=== PATIENT | female | born 1990 | race African-American/Black ===

== ENCOUNTER 2018-08-05 09:52 | Observation (INO) | payer MEDICARE, OTHER ==
--- NOTE | 2018-08-05 10:26 | PDOC ---
History of Present Illness <Lacey,Yana - Last Filed: 08/05/18 15:49> - General History Source: Patient Exam Limitations: No Limitations - History of Present Illness Initial Comments: 08/05/18 10:44 27 year old female with no PMH presented to ED for nausea, vomiting, diarrhea since last night. She admitted to upper abdominal pain, and cramps in hands/feet , chills, sweats, body aches. She denied chest pain, shortness of breath, dysuria. Pt stated LMP finished 2 days ago. <FeliceTiffany - Last Filed: 08/05/18 16:59> - General Chief Complaint: Nausea/Vomiting Stated Complaint: NAUSEA Time Seen by Provider: 08/05/18 10:26 Past History <LaceyYana - Last Filed: 08/05/18 15:49> - Past Medical History COPD: No - Immunization History Immunization Up to Date: Yes - Suicide/Smoking/Psychosocial Hx Smoking History: Never smoked Number of Cigarettes Smoked Daily: 10 Information on smoking cessation initiated: No Hx Alcohol Use: No Drug/Substance Use Hx: Yes Substance Use Type: Marijuana <Taryn Viverosa - Last Filed: 08/05/18 16:59> - Past Medical History Allergies/Adverse Reactions: Allergies Allergy/AdvReac Type Severity Reaction Status Date / Time Penicillins Allergy Rash Verified 08/05/18 10:04 Home Medications: Ambulatory Orders Famotidine [Pepcid] 40 mg PO DAILY #14 tablet 07/24/16 Ondansetron HCl [Zofran] 4 mg PO QID PRN #12 tablet 07/24/16 Review of Systems - Review of Systems Able to Perform ROS?: Yes Comments:: 08/05/18 10:45 General: admitted to chills, night sweats, generalized weakness. HEENT: denied sore throat, rhinorrhea, ear pain. Heart: denied chest pain, palpitations, syncope, lower extremity swelling, diaphoresis. Respiratory: denied shortness of breath, cough, sputum production, hemoptysis. Abdomen: admitted to abdominal pain, nausea, vomiting, diarrhea. denied constipation, blood in stool. : denied dysuria, increased urinary frequency, hematuria, urinary incontinence , flank pain. Back: denied back pain. Musculoskeletal: admitted to hand/feet cramping. denied joint pain, muscle pain , joint swelling. Neurological: denied headache, dizziness, numbness, tingling, weakness. Skin: denied rash, laceration, abrasion. <Felice,Tiffany - Last Filed: 08/05/18 16:59> *Physical Exam - Vital Signs Last Vital Signs Temp Pulse Resp BP Pulse Ox 98.2 F 68 17 126/76 98 08/05/18 14:46 08/05/18 14:46 08/05/18 14:46 08/05/18 14:46 08/05/18 14:47 <DeepthiYana - Last Filed: 08/05/18 15:49> - Vital Signs Last Vital Signs Temp Pulse Resp BP Pulse Ox 97.7 F 70 20 125/74 100 08/05/18 10:04 08/05/18 10:04 08/05/18 10:04 08/05/18 10:04 08/05/18 10:04 - Physical Exam Comments: 08/05/18 10:47 Constitutional: Well-nourished, Well-developed, appearing stated age. HEENT: head is normocephalic, atraumatic. EOMI. PERRLA. no posterior pharyngeal erythema. no tonsillar swelling. no tonsillar exudates. Neck: supple. Full ROM. Heart: regular rhythm. no murmurs, rubs or gallops. Lungs: clear to auscultation bilaterally. no crackles, rhonchi or wheezing. no stridor. Abdomen: soft, nontender. normal bowel sounds. no rebound, guarding, masses. Extremities: Peripheral pulses intact. No lower extremity edema. Neurological: CN 2-12 grossly intact. Moves all four extremities. Psych: awake, alert, oriented x3. Follows commands. Answers questions appropriately. <FeliceTiffany - Last Filed: 08/05/18 16:59> ED Treatment Course - LABORATORY CBC & Chemistry Diagram: 08/05/18 10:31 08/05/18 10:50 - ADDITIONAL ORDERS Additional order review: Laboratory Results 08/05/18 08/05/18 08/05/18 13:16 10:50 10:50 PT with INR 13.70 H INR 1.16 H PTT (Actin FS) 29.4 Sodium 140 Potassium 3.5 Chloride 108 H Carbon Dioxide 21 Anion Gap 11 BUN 9 Creatinine 0.8 Creat Clearance w eGFR > 60 Random Glucose 96 Calcium 9.3 Phosphorus 2.3 L Magnesium 2.0 Total Bilirubin 0.4 AST 22 ALT 30 Alkaline Phosphatase 52 Total Protein 8.0 Albumin 4.3 Lipase 124 Urine Color Urine Appearance Urine pH Ur Specific [place] Urine Protein Urine Glucose (UA) Urine Ketones Urine Blood Urine Nitrite Urine Bilirubin Urine Urobilinogen Ur Leukocyte Esterase Urine WBC (Auto) Urine RBC (Auto) Ur Epithelial Cells Urine Mucus Urine HCG, Qual Stool Occult Blood Negative 08/05/18 10:31 PT with INR INR PTT (Actin FS) Sodium Potassium Chloride Carbon Dioxide Anion Gap BUN Creatinine Creat Clearance w eGFR Random Glucose Calcium Phosphorus Magnesium Total Bilirubin AST ALT Alkaline Phosphatase Total Protein Albumin Lipase Urine Color Ltyellow Urine Appearance Clear Urine pH 9.0 H D Ur Specific [place] 1.023 Urine Protein 1+ H Urine Glucose (UA) Negative Urine Ketones 2+ H Urine Blood Negative Urine Nitrite Negative Urine Bilirubin Negative Urine Urobilinogen Negative Ur Leukocyte Esterase Negative Urine WBC (Auto) <1 Urine RBC (Auto) 1 Ur Epithelial Cells Few Urine Mucus Rare Urine HCG, Qual Negative Stool Occult Blood 08/05/18 10:31 RBC 4.61 MCV 65.8 L MCHC 31.4 L RDW 22.9 H MPV 9.3 Neutrophils % 88.4 H Lymphocytes % 7.8 L D Monocytes % 3.5 L Eosinophils % 0.0 D Basophils % 0.3 - RADIOLOGY Radiograph Interpretation: Abdomen and pelvis CT (with contrast). There appears to be a concentric wall thickening along the right colon suggestive of acute colitis. A possible small bowel intussusception is seen within the right mid abdomen. There is mild dilatation of the more proximal small bowel. Mild to moderate fluid-filled gastric distention is noted. Correlate with follow-up CT> Possible 2 mm nonobstructing left renal calculus. Borderline splenic size. Mild L5-S1 spondylolytic spondylolisthesis. Reported By: Mateo Mujica MD 08/05/18 at 15:40. 08/05/18 15:47 - Medications Given in the ED: ED Medications Discontinued Medications Generic Name Dose Route Start Last Admin Trade Name Freq PRN Reason Stop Dose Admin Acetaminophen 1,000 mg 08/05/18 10:45 08/05/18 10:59 Tylenol - PO 08/05/18 10:46 Not Given ONCE ONE Acetaminophen 1,000 mg 08/05/18 10:52 08/05/18 10:57 Ofirmev Injection - IVPB 08/05/18 10:53 1,000 mg ONCE ONE Administration Sodium Chloride 1,000 mls @ 1,000 mls/hr 08/05/18 10:28 08/05/18 10:52 Normal Saline - IV 08/05/18 11:27 1,000 mls/hr ASDIR STA Administration Ondansetron HCl 4 mg 08/05/18 10:28 08/05/18 10:52 Zofran Injection IVPUSH 08/05/18 10:29 4 mg ONCE ONE Administration <Yana Lacey - Last Filed: 08/05/18 15:49> - LABORATORY CBC & Chemistry Diagram: 08/05/18 10:31 08/05/18 10:50 <Tiffany Viveros - Last Filed: 08/05/18 16:59> Medical Decision Making - Medical Decision Making 08/05/18 10:47 27 year old female with no PMH presented to ED for nausea, vomiting, diarrhea, sweats, chills, upper abdominal pain since last night. Initial Vital Signs Temp Pulse Resp BP Pulse Ox 97.7 F 70 20 125/74 100 08/05/18 10:04 08/05/18 10:04 08/05/18 10:04 08/05/18 10:04 08/05/18 10:04 Afebrile. No tachycardia. No tachypnea. No hypotension. No hypoxia on room air. Pending UA/UC, urine test, CBC for evaluation of possible UTI, . Pending CMP, phose, mag for evaluation of possible electrolyte abnormality. Pending lipase, LFTs for evaluation of possible pancreatitis. Pending flu swab for evaluation of possible influenza. Pending CT abdomen/pelvis with IV contrast. Zofran ordered for nausea. Tylenol ordered for pain, subjective fever. 1L normal saline bolus ordered for hydration. 08/05/18 11:17 CBC WBC 7.5 K/mm3 (4.0-10.0) 08/05/18 10:31 RBC 4.61 M/mm3 (3.60-5.2) 08/05/18 10:31 Hgb 9.5 GM/dL (10.7-15.3) L 11/21/18 10:31 Hct 30.3 % (32.4-45.2) L D 08/05/18 10:31 MCV 65.8 fl (80-96) L 08/05/18 10:31 MCH 20.7 pg (25.7-33.7) L D 08/05/18 10:31 MCHC 31.4 g/dl (32.0-36.0) L 08/05/18 10:31 RDW 22.9 % (11.6-15.6) H 08/05/18 10:31 Plt Count 238 K/MM3 (134-434) D 08/05/18 10:31 MPV 9.3 fl (7.5-11.1) 08/05/18 10:31 Absolute Neuts (auto) 6.7 K/mm3 (1.5-8.0) 08/05/18 10:31 Neutrophils % 88.4 % (42.8-82.8) H 08/05/18 10:31 Lymphocytes % 7.8 % (8-40) L D 08/05/18 10:31 Monocytes % 3.5 % (3.8-10.2) L 08/05/18 10:31 Eosinophils % 0.0 % (0-4.5) D 08/05/18 10:31 Basophils % 0.3 % (0-2.0) 08/05/18 10:31 Nucleated RBC % 0 % (0-0) 08/05/18 10:31 No leukocytosis. Microcytic anemia. Urine test negative. Rapid influenza A and B testing negative. INR, PTT INR 1.16 (0.83-1.09) H 08/05/18 10:50 08/05/18 12:05 CMP Sodium 140 mmol/L (136-145) 08/05/18 10:50 Potassium 3.5 mmol/L (3.5-5.1) 08/05/18 10:50 Chloride 108 mmol/L (98-107) H 08/05/18 10:50 Carbon Dioxide 21 mmol/L (21-32) 08/05/18 10:50 Anion Gap 11 MMOL/L (8-16) 08/05/18 10:50 BUN 9 mg/dL (7-18) 08/05/18 10:50 Creatinine 0.8 mg/dL (0.55-1.3) 08/05/18 10:50 Creat Clearance w eGFR > 60 (>60) 08/05/18 10:50 Random Glucose 96 mg/dL (74-106) 08/05/18 10:50 Calcium 9.3 mg/dL (8.5-10.1) 08/05/18 10:50 Phosphorus 2.3 mg/dL (2.5-4.9) L 08/05/18 10:50 Magnesium 2.0 mg/dL (1.8-2.4) 08/05/18 10:50 Total Bilirubin 0.4 mg/dL (0.2-1) 08/05/18 10:50 AST 22 U/L (15-37) 08/05/18 10:50 Alkaline Phosphatase 52 U/L (45-117) 08/05/18 10:50 Total Protein 8.0 g/dl (6.4-8.2) 08/05/18 10:50 Albumin 4.2 g/dl (3.4-5.0) 08/05/18 10:50 Lipase 124 U/L (73-393) 08/05/18 10:50 No electrolyte abnormalities. No QUINCY. No hypoglycemia. Mild low phosphorus. Normal lipase. 08/05/18 12:11 Urine Test Results Urine Color Ltyellow 08/05/18 10:31 Urine Appearance Clear 08/05/18 10:31 Urine pH 9.0 (5.0-8.0) H D 08/05/18 10:31 Ur Specific [place] 1.023 (1.010-1.035) 08/05/18 10:31 Urine Protein 1+ (NEGATIVE) H 08/05/18 10:31 Urine Glucose (UA) Negative (NEGATIVE) 08/05/18 10:31 Urine Ketones 2+ (NEGATIVE) H 08/05/18 10:31 Urine Blood Negative (NEGATIVE) 08/05/18 10:31 Urine Nitrite Negative (NEGATIVE) 08/05/18 10:31 Urine Bilirubin Negative (<2.0 mg/dL) 08/05/18 10:31 Ur Leukocyte Esterase Negative (NEGATIVE) 08/05/18 10:31 Ur Epithelial Cells Few /HPF (FEW) 08/05/18 10:31 Urine Mucus Rare 08/05/18 10:31 UA negative for UTI. Positive for ketones, likely from decreased PO intake. 08/05/18 13:17 Pt now reported having bloody stool, red when it was coming out and then it was dark. Guiac sent. Rectal examination: no external hemorrhoids. good rectal tone. no gross blood on glove. 08/05/18 13:38 Guiac negative for blood in stool. 08/05/18 14:03 Pt tolerated juice PO challenge. 08/05/18 15:43 CT abdomen/pelvis report: acute colitis. possible small bowel intussusception within the right mid abdomen. There is mild dilation of the more proximal small bowel. Mild to moderate fluid-gilled gastric distension is noted. possible 2 mm nonobstructing left renal calculus. 08/05/18 15:50 Pt reassessed, stated 0/10 pain. Abdomen soft, flat, nontender. Surgery paged. 08/05/18 16:[address] Elmore about the case, he recommended admission for observation and possible surgery. He stated his PA will come to evaluate the patient. NPO order entered. Pt stated she is hungry, pt informed of risk of aspiration if she were to need surgery. 08/05/18 16:20 [facility] paged. 08/05/18 16:59 Surgery stated they will admit the patient to their service. Pt will be admitted to obs med/surg. <Tiffany Viveros - Last Filed: 08/05/18 16:59> *DC/Admit/Observation/Transfer - Attestations Scribe Attestion: 08/05/18 15:49 Documentation prepared by TEVIN Sawnn, acting as medical lab assistant for Boom Kat MD. <Yana Lacey - Last Filed: 08/05/18 15:49> - Discharge Dispostion Decision to Admit order: Yes <Tiffany Viveros - Last Filed: 08/05/18 16:59> Diagnosis at time of Disposition: Intussusception, Colitis - Discharge Dispostion Condition at time of disposition: Stable - Patient Instructions Additional Instructions:
[2018-08-05] MEDS ORDERED: SODIUM CHLORIDE 1,000 ML IV STA (10:28)
[2018-08-05] MEDS ORDERED: ONDANSETRON 4 MG/2 ML VIAL IVPUSH ONE (10:28)
[2018-08-05] MEDS ORDERED: ONDANSETRON 4 MG/2 ML VIAL ONE (10:32)
[2018-08-05] MEDS ORDERED: ACETAMINOPHEN 500 MG TABLET (FP) PO ONE (10:45)
[2018-08-05] MEDS ORDERED: ACETAMINOPHEN 1000 MG/100 ML VIAL (NON FORMULARY) IVPB ONE (10:52)
[2018-08-05] MEDS ORDERED: ACETAMINOPHEN INJECTION 100 ML IVPB ONE (10:53)
[2018-08-05 11:01] LABS: BASO % 0.3 % (0-2.0); HEMATOCRIT 30.3 % (32.4-45.2); HEMOGLOBIN 9.5 GM/dL (10.7-15.3); LYMPH % 7.8 % (8-40); MCH 20.7 pg (25.7-33.7); MCHC 31.4 g/dl (32.0-36.0); MEAN CELL VOLUME 65.8 fl (80-96); MEAN PLT VOLUME 9.3 fl (7.5-11.1); MONO % 3.5 % (3.8-10.2); NEUT % 88.4 % (42.8-82.8); PLATELET COUNT 238 K/MM3 (134-434); RBC 4.61 M/mm3 (3.60-5.2); RDW 22.9 % (11.6-15.6); WHITE BLOOD COUNT 7.5 K/mm3 (4.0-10.0)
[2018-08-05 11:10] LABS: HCG,QUALITATIVE URINE Negative
[2018-08-05 11:17] LABS: INR 1.16 (0.83-1.09); PROTHROMBIN TIME (PATIENT) 13.7 SEC (9.7-13.0)
[2018-08-05 11:19] LABS: ACTIVATED PTT 29.4 SECONDS (25.2-36.5)
[2018-08-05 11:31] LABS: URINE APPEARANCE CLEAR; URINE BILIRUBIN NEGATIVE (<2.0 mg/dL); URINE COLOR LTYELLOW; URINE GLUCOSE (UA) NEGATIVE (NEGATIVE); URINE KETONE 2+ (NEGATIVE); URINE LEUK ESTERASE NEGATIVE (NEGATIVE); URINE NITRITE NEGATIVE (NEGATIVE); URINE PROTEIN 1+ (NEGATIVE); URINE UROBILINOGEN NEGATIVE mg/dL (0.2-1.0)
[2018-08-05 11:34] LABS: EPI CELLS FEW /HPF (FEW); URINE MUCUS RARE
[2018-08-05 12:03] LABS: CO2 21 mmol/L (21-32); CREATININE 0.8 mg/dL (0.55-1.3)
[2018-08-05 12:09] LABS: ALBUMIN 4.3 g/dl (3.4-5.0); ALK PHOS 52 U/L (45-117); ANION GAP 11 MMOL/L (8-16); BILIRUBIN,TOTAL 0.4 mg/dL (0.2-1); BLOOD UREA NITROGEN 9 mg/dL (7-18); CALCIUM 9.3 mg/dL (8.5-10.1); CHLORIDE 108 mmol/L (98-107); GLUCOSE,RANDOM 96 mg/dL (74-106); LIPASE 124 U/L (73-393); PHOSPHOROUS 2.3 mg/dL (2.5-4.9); POTASSIUM 3.5 mmol/L (3.5-5.1); SGOT/AST 22 U/L (15-37); SODIUM 140 mmol/L (136-145)
[2018-08-05 12:42] LABS: SGPT/ALT 30 U/L (13-61)
--- NOTE | 2018-08-05 13:44 | PDOC ---
Attending Attestation - Resident Resident Name: Tiffany Viveros - ED Attending Attestation I have performed the following: I have examined & evaluated the patient, The case was reviewed & discussed with the resident, I agree w/resident's findings & plan, Exceptions are as noted - HPI HPI: 08/05/18 13:27 This is a 27 year old female with no significant past medical history, surgical hx presents to the emergency department today complaining of nausea, vomiting, diarrhea, and epigastric pain for 2 days. Patient notes she began feeling nauseous last night, and started to vomit and experienced diarrhea immediately after. Patient states her first episode of vomit consisted of her last meal she had ate, then it transitioned into yellow/clear in substance, and was green this morning. Patient also reports one of her stools this morning showed dark red blood on the stool. Patient notes related epigastric pain. Since the diarrhea and vomiting episodes began, patient reports a subjective fever with chills, sweats, and body aches. She also complains of intermittent hand and feet cramping. All symptoms are not affected by meals. Patients last meal and last normal bowel movement was last night. Her LMP was 2 days ago, and notes her periods are typically heavy and she has a hx of iron deficiency anemia. Denies chest pain or SOB. Denies change in urinary output. Denies runny nose or sore throat. Denies recent travel or sick contact. PCP: none noted Surgical hx: (2008) - Physicial Exam PE: 08/05/18 13:44 GENERAL: Awake, alert, and fully oriented, in no acute distress EYES: PERRLA, EOMI, sclera anicteric, conjunctiva clear ENT: Oropharynx clear without exudates. Moist mucosa NECK: Normal ROM, supple LUNGS: Breath sounds equal, clear to auscultation bilaterally. No wheezes, and no crackles HEART: Regular rate and rhythm, normal S1 and S2, no murmurs, rubs or gallops ABDOMEN: Soft, mild ttp to epigastric area, normoactive bowel sounds. No guarding, no rebound. No masses. Negative bravo's sign. EXTREMITIES: Normal range of motion, no edema. No clubbing or cyanosis. No cords, erythema, or tenderness NEUROLOGICAL: Normal speech, cranial nerves intact, 5/5 strength in all 4 extremities, normal sensation to light touch in all 4 extremities, normal gait SKIN: Warm, Dry, normal turgor, no rashes or lesions noted. - Medical Decision Making 08/05/18 12:45 27yo F presents to the ED with N/V/D, and epigastric abd pain. Vitals wnl. Exam with epigastric pain. DDx includes BNLT enteritis vs colitis vs pancreatitis vs SBO vs gastritis. Plan: -labs -UA -UPT -CTAP -sxs control -IVF -reassess 08/05/18 13:46 labs, ua wnl. UPT neg guiaic neg, likely no GIB, pt was not sure if her stool was brown or red pt anemic with hgb 9, however MCV is low consistent with known hx iron def anemia and menorrhagia - pt to f/u with [facility] [employer] [employer] and PMD CTAP pending 08/05/18 17:30 CTAP with colitis and intussiseption Surgery c/s would like pt admitted for rpt ctap with oral contrast and observation Case discussed with NHUNG Rios, pt admitted to Dr. Elmore Case discussed in detail with admitting physician including history, physical exam and ancillary studies. Admitting physician has assumed care for the patient, will follow all pending diagnostics and will complete the evaluation and treatment.
[2018-08-05 15:56] LABS: ANISOCYTOSIS 1+; MACROCYTOSIS 1+
[2018-08-05] MEDS ORDERED: SODIUM CHLORIDE 1,000 ML IV SCH (17:45)
[2018-08-05] MEDS ORDERED: ACETAMINOPHEN 325 MG TABLET (FP) PO PRN (20:17)
[2018-08-05] MEDS ORDERED: ONDANSETRON 4 MG/2 ML VIAL IVPUSH PRN (20:20)
[2018-08-05] MEDS ORDERED: D5-1/2NS+20 MEQ KCL - 20 MEQ/1,000 ML INFUS.BAG IV SCH (20:30)
--- NOTE | 2018-08-05 20:31 | HP ---
Admitting History and Physical - Admission History of Present Illness: The patient is a 27 yo female who presents to the ED for evaluation of her vomiting, diarrhea and abdominal pain. The ER placed a surgical conult for the finding of intussesception on a CT scan while in the ER. The patient states that she had a normal bowel movement/and diet yesterday and awoke about 11pm with emesis/followed by diarrhea and nausea. She noted the emesis to consist of food contents/yellowish material with a scant amount of blood in her diarrhea. The patient did develop some abdominal pain after voimiting. Currently her abd pain, nausea have resolved and she feels hungry. Pain medication was last admisinstered earlier today on admission around 11am. She is having some fever/ chills. History Source: Patient Limitations to Obtaining History: No Limitations - Past Medical History Cardiovascular: No: Deep Vein Thrombosis Pulmonary: No: Asthma Gastrointestinal: No: Constipation, Gastritis, GERD, GI Bleed, Inflamatory Bowel Disease, Ulcerative Colitis Renal/: No: Renal Calculi, UTI ...: No Heme/Onc: Yes: Anemia (heavy menstral bleeding lasting 7 days) - Past Surgical History Past Surgical History: Yes: - Smoking History Smoking history: Never smoked Aproximately how many cigarettes per day: 10 - Alcohol/Substance Use Hx Alcohol Use: No Home Medications - Allergies Allergies/Adverse Reactions: Allergies Allergy/AdvReac Type Severity Reaction Status Date / Time Penicillins Allergy Rash Verified 08/05/18 10:04 - Home Medications Home Medications: Ambulatory Orders Famotidine [Pepcid] 40 mg PO DAILY #14 tablet 07/24/16 Ondansetron HCl [Zofran] 4 mg PO QID PRN #12 tablet 07/24/16 Review of Systems - Review of Systems Constitutional: reports: Chills, Fever Neck: denies: Decreased ROM, Pain on Movement Cardiovascular: denies: Chest Pain, Palpitations Respiratory: denies: Cough, SOB Gastrointestinal: reports: Abdominal Pain, Nausea, Vomiting Genitourinary: denies: Burning, Hematuria Musculoskeletal: denies: Decreased ROM, Extremity Pain, Joint Pain Hematology/Lymphatic: denies: Easily Bruised, Excessive Bleeding Pain Intensity: 0 Physical Examination Vital Signs: Vital Signs Temperature 98.2 F 08/05/18 14:46 Pulse Rate 68 08/05/18 14:46 Respiratory Rate 17 08/05/18 14:46 Blood Pressure 126/76 08/05/18 14:46 O2 Sat by Pulse Oximetry (%) 98 08/05/18 14:47 Constitutional: Yes: Well Nourished, No Distress, Calm Eyes: Yes: WNL, Conjunctiva Clear. No: Sclera Icterus HENT: Yes: WNL, Atraumatic, Normocephalic Cardiovascular: Yes: WNL, Regular Rate and Rhythm Respiratory: Yes: WNL, Regular, CTA Bilaterally Gastrointestinal: Yes: WNL, Soft. No: Distention ...Rectal Exam: Yes: Guaiac Negative (as per laboratory recording) Neurological: Yes: WNL, Alert, Oriented Labs: CBC, BMP 08/05/18 10:31 08/05/18 10:50 Imaging - Results Cat Scan: Report Reviewed (free fluid in the pelvis, ascending/cecum wall thickening. Jejunojejunal intussesecption in Right lower quadrant) Problem List - Problems (1) Colitis Assessment/Plan: Monitor cbc/chem IV hydration Stool for c diff although unlikely. She did just finish a course of oral antiotics(clindyamcin) for oral dental work/tooth extraction. Code(s): K52.9 - NONINFECTIVE GASTROENTERITIS AND COLITIS, UNSPECIFIED (2) Intussusception Assessment/Plan: D/w Dr. Elmore and plan for admission to the surgical service for observation. Repeat CT scan of abd/pelvis ordered with oral constrast to better evaluate the possible colitis and jejunal insussesception area in the right lower quadrant. The patient remains comfortable with resolved symptoms. Code(s): K56.1 - INTUSSUSCEPTION
[2018-08-05] MEDS: FAMOTIDINE 20 MG/50 ML IVPB 20 MG/50 ML MG IVPB SCH (21:07)
[2018-08-05 23:00] VITALS: BMI 19.7
[2018-08-06 03:11] VITALS: TEMP 98.8
--- NOTE | 2018-08-06 08:07 | PN ---
Progress Note (short form) - Note Progress Note: Attending Surgeon No c/o; tolerated diet; CT a/p w/oral contrast negative for acute surgical pathology abdo-soft; flat and non tender AM labs pending IMP: doing well PLAN: Advance diet and if tolerated d/c to OP f/u; a/a/u by the patient. Jay Jay Elmore MD FACS
[2018-08-06 08:37] LABS: ANION GAP 9 MMOL/L (8-16); BLOOD UREA NITROGEN 4 mg/dL (7-18); CALCIUM 8.2 mg/dL (8.5-10.1); CHLORIDE 105 mmol/L (98-107); CO2 24 mmol/L (21-32); CREATININE 0.8 mg/dL (0.55-1.3); GLUCOSE,RANDOM 103 mg/dL (74-106); POTASSIUM 3.5 mmol/L (3.5-5.1); SODIUM 139 mmol/L (136-145)
[2018-08-06 08:38] LABS: BASO % 0.2 % (0-2.0); HEMOGLOBIN 8.4 GM/dL (10.7-15.3); LYMPH % 23.1 % (8-40); MCH 20.6 pg (25.7-33.7); MCHC 31.2 g/dl (32.0-36.0); MEAN PLT VOLUME 9.1 fl (7.5-11.1); MONO % 8.2 % (3.8-10.2); NEUT % 68.5 % (42.8-82.8); PLATELET COUNT 198 K/MM3 (134-434); RBC 4.09 M/mm3 (3.60-5.2); RDW 22.7 % (11.6-15.6); WHITE BLOOD COUNT 6.4 K/mm3 (4.0-10.0)
[2018-08-06] MEDS: FAMOTIDINE 20 MG/50 ML IVPB 20 MG/50 ML MG IVPB SCH (09:56)
[2018-08-06 10:56] VITALS: BP 122/71; PULSE 67
== END 2018-08-06 12:21 | disposition home or self-care (01) ==
LOC: JER 09:52 → JERBED 16:57 → J6S 20:35
PROVIDERS: ADMIT Surgery; ATTEND Surgery
PROC: 3E033NZ Introduction of Analgesics, Hypnotics, Sedatives into Peripheral Vein, Percutaneous Approach (ICD-10-PCS; principal; 2018-08-05)
PROC: 3E0337Z Introduction of Electrolytic and Water Balance Substance into Peripheral Vein, Percutaneous Approach (ICD-10-PCS; 2018-08-05)
PROC: 3E033GC Introduction of Other Therapeutic Substance into Peripheral Vein, Percutaneous Approach (ICD-10-PCS; 2018-08-05)
DX: K56.1 Intussusception (principal); K52.9 Noninfective gastroenteritis and colitis, unspecified
CPT/HCPCS: 36415; 71046-TC-FY; 74176-TC; 74177-TC; 80048; 80053; 81003; 81015; 82272; 83690; 83735; 84100; 84703; 85025; 85610; 85730; 86850; 86900; 86901; 87086; 87804; 96361; 96374; 96375; 96376; 99285-25; G0378; J0131; J7030; Q9967

== ENCOUNTER 2019-09-24 17:07 | Emergency (ER) | payer SELFPAY ==
[2019-09-24 17:14] VITALS: BP 115/88; PULSE 65; TEMP 98.3; BMI 20.7
[2019-09-24] MEDS ORDERED: ACETAMINOPHEN 1000 MG/100 ML VIAL (NON FORMULARY) IVPB ONE (17:16)
[2019-09-24] MEDS ORDERED: ONDANSETRON 4 MG/2 ML VIAL IVPUSH ONE (17:16)
[2019-09-24] MEDS ORDERED: SODIUM CHLORIDE 0.9% 500 ML INFUS.BAG IV ONE ×2 (17:16→19:03)
[2019-09-24] MEDS ORDERED: ACETAMINOPHEN INJECTION 100 ML IVPB ONE (17:21)
[2019-09-24] MEDS ORDERED: ONDANSETRON 4 MG/2 ML VIAL ONE (17:21)
--- NOTE | 2019-09-24 17:21 | PDOC ---
History of Present Illness - General Chief Complaint: Vomiting/Diarrhea Stated Complaint: v/d abd pain Time Seen by Provider: 09/24/19 17:14 History Source: Patient Exam Limitations: No Limitations - History of Present Illness Initial Comments: 09/24/19 17:14 HPI: 28yo F no significant PMH presenting with abdominal pain since this morning. Patient reports sudden onset constant, severe, squeezing / twisting RLQ abdominal pain starting while she was at the grocery store this morning. She became diaphoretic, lightheaded. At home she began to experience multiple episodes of nausea, vomiting, and diarrhea, spending "over an hour on the toilet." She denies blood in the diarrhea, endorses small volume bright red blood in later emesis. She reports feeling her heart racing and feels thirsty and dehydrated. Reports she has no appetite. Endorses and no other intraabdominal surgeries. No vaginal bleeding or discharge. LMP ended 09/18/19 - normally regular cycle. All: PCNs Meds: Denies PMH: Denies PSH: x1 Past History - Past Medical History Allergies/Adverse Reactions: Allergies Allergy/AdvReac Type Severity Reaction Status Date / Time Penicillins Allergy Rash Verified 09/24/19 17:08 Home Medications: Ambulatory Orders NK [No Known Home Medication] 09/24/19 COPD: No - Immunization History Immunization Up to Date: Yes - Psycho Social/Smoking Cessation Hx Smoking History: Current every day smoker Number of Cigarettes Smoked Daily: 8 Information on smoking cessation initiated: Yes Hx Alcohol Use: Yes (ocasional) Drug/Substance Use Hx: Yes (marijuana) Substance Use Type: Marijuana Review of Systems - Review of Systems Able to Perform ROS?: Yes Is the patient limited Taiwanese proficient: Yes Constitutional: Yes: Chills, Diaphoresis, Fever. No: Weakness HEENTM: No: Nose Congestion, Throat Pain Respiratory: No: Cough, Shortness of Breath, Wheezing Cardiac (ROS): Yes: Lightheadedness. No: Chest Pain, Irregular Heart Rate, Palpitations, Syncope, Chest Tightness ABD/GI: Yes: Diarrhea, Nausea, Poor Appetite, Poor Fluid Intake, Vomiting. No: Blood Streaked Bowels, Constipated, Rectal Bleeding, Tarry Stools : No: Burning, Dysuria, Discharge, Frequency Musculoskeletal: No: Back Pain, Muscle Pain, Muscle Weakness, Neck Pain Integumentary: Yes: Sweating. No: Dryness, Pallor, Rash Neurological: No: Headache, Numbness, Tingling, Weakness Endocrine: Yes: Increased Thirst. No: Increased Urine, Change in Weight Hematologic/Lymphatic: No: Anemia, Blood Clots, Easy Bleeding All Other Systems: Reviewed and Negative *Physical Exam - Vital Signs Last Vital Signs Temp Pulse Resp BP Pulse Ox 98.3 F 65 17 115/88 100 09/24/19 17:08 09/24/19 17:08 09/24/19 17:08 09/24/19 17:08 09/24/19 17:08 - Physical Exam 09/24/19 17:29 Vitals reviewed GEN: Sick appearing, appears stated age, laying down by emesis basin, doubled over. AAOx3. HEENT: NCAT, EOMI, PERRL. Sclera anicteric, noninjected. No facial asymmetry. Moist mucous membranes. Normal voice. Trachea midline. CV: RRR, S1/S2, no murmurs / rubs / gallops appreciated. LUNG: CTAB, normal work of breathing. No wheezes, rales, rhonchi. No cough. Speaking full sentences. GI: Soft, NTND, +BS, no guarding, no rebound. No masses. Neg CVAT b/l. EXTREMITIES: 2+ distal pulses. No LE edema. No obvious deformities of all extremities. SKIN: Warm, dry, no rashes appreciated, non-jaundiced. PSYCH: Normal mood and affect. Cooperative and appropriate. NEURO: CN grossly intact. Moving all extremities well. Normal strength and sensation grossly. 09/24/19 19:01 SSE: normal external genitalia, normal rugae, no legions, normal cervix with think white physiologic discharge BME: No CMT, no masses appreciated ED Treatment Course - LABORATORY CBC & Chemistry Diagram: 09/24/19 17:19 09/24/19 17:19 Medical Decision Making - Medical Decision Making 09/24/19 17:18 28yo F no significant PMH presenting with RLQ abdominal pain since this morning. History notable for sudden onset, no prior episodes, no sick contacts. Exam notable for continued wretching and emesis, normal vitals without fever. DDX: Ectopic, Torsion, Appendicitis, Gastroenteritis, Colitis, Ureterolithiasis - CBC, CMP, Lipase - UA, UCx, Upreg - EKG - 1L bolus - 1g Ofirmev - Zofran 09/24/19 18:23 - EKG with borderline QTc (483), otherwise unremarkable, normal EKG - Improved pain s/p Tylenol, zofran - Additional nausea --> Reglan instead of Zofran given QTc 09/24/19 18:28 - No leukocytosis, baseline anemia - Normal electrolytes, no QUINCY - Negative test - No UTI, no blood 09/24/19 19:00 - POCUS US with mild hydro on R kidney - TVUS ordered - Likely will require CTAP - Pelvic exam within normal limits - Additional IVF ordered 1L bolus Endorsed to night team Discharge - Discharge Information Problems reviewed: Yes Clinical Impression/Diagnosis: Pelvic pain Nausea & vomiting Qualifiers: Vomiting type: unspecified Vomiting Intractability: non-intractable Qualified Code(s): R11.2 - Nausea with vomiting, unspecified Condition: Stable Disposition: HOME - Follow up/Referral - Patient Discharge Instructions Additional Instructions: Return to the emergency department immediately with ANY new, persistent or worsening symptoms. Continue any medications as previously prescribed by your physician. You should follow up with your primary doctor as soon as possible regarding today's emergency department visit. . Please make sure your doctor reviews the results of your emergency evaluation. Thank you for coming to the Emergency Department today for your care. It was a pleasure to see you today. Please note that your evaluation is INCOMPLETE until you follow-up with your doctor. - Post Discharge Activity Work/Back to School Note: Back to Work
[2019-09-24 17:58] LABS: HEMATOCRIT 31.4 % (32.4-45.2); HEMOGLOBIN 9.7 GM/dl (10.7-15.3); MCH 21.8 pg (25.7-33.7); MEAN CELL VOLUME 70.3 fl (80-96); MEAN PLT VOLUME 10.6 fl (7.5-11.1); PLATELET COUNT 217 K/MM3 (134-434); RBC 4.47 M/mm3 (3.60-5.2); RDW 18.8 % (11.6-15.6); WHITE BLOOD COUNT 10.6 K/mm3 (4.0-10.8)
[2019-09-24 18:02] LABS: ADD RBC MORPHOLOGY YES
--- NOTE | 2019-09-24 18:05 | PDOC ---
Attending Attestation - Resident Resident Name: Sanford Carr - ED Attending Attestation I have performed the following: I have examined & evaluated the patient, The case was reviewed & discussed with the resident, I agree w/resident's findings & plan, Exceptions are as noted - HPI HPI: 09/24/19 18:03 28 yo F with h/o sudden onset n/v and rlq pain.s tarted while at grocery store earlier this am. has been vomiting all day. no change to bm. no prior abd surgery. states one year ago she presented with abd pain, had ct questionable intussiception, and repeat ct had resolved. states has h/o renal stones, no known h/o ovarian cysts unsure if she may be . no f/c no sick contacts. 09/24/19 19:02 - Physicial Exam PE: 09/24/19 18:04 awake alert lungs clear bilat heart rreg tachycardia. abd soft nt nd ext wwp. no cva tenderness. - Medical Decision Making 09/24/19 18:04 28 yo F with no pmhx sudden onset n/v abd pain. differential renal colic, ovarian cyst, torsion, ectopic pregnany, torsion. plan us possible ct a/p ivf, antiemetics, pain control ivf. 09/24/19 19:04 focused ED bedside screening us with renal performed. no hydro noted. noted to have small ff in rlq. differential ovarian cyst rupture, torsion vs. ruptured AP plan tvus right ovary. will regi require ct a/p ua labs . currently on my exam pt is pain free.
[2019-09-24 18:06] LABS: ALBUMIN 4.7 g/dl (3.4-5.0); BILIRUBIN,TOTAL 0.7 mg/dl (0.2-1); CALCIUM 9.5 mg/dl (8.5-10); CREATININE 0.7 mg/dl (0.55-1.3); POTASSIUM 3.6 mmol/L (3.5-5.1); TOT PROT 8.1 g/dl (6.4-8.2)
[2019-09-24 18:32] LABS: EPITHELIAL CELLS MODERATE /hpf; URINE MUCUS 2+
[2019-09-24 19:06] LABS: ANISOCYTOSIS 1+; OVALOCYTE 1+
[2019-09-24 19:07] LABS: PLATELET ESTIMATE ADEQUATE
--- NOTE | 2019-09-24 22:11 | PDOC ---
*Physical Exam - Vital Signs Last Vital Signs Temp Pulse Resp BP Pulse Ox 98.3 F 65 17 115/88 100 09/24/19 17:08 09/24/19 17:08 09/24/19 17:08 09/24/19 17:08 09/24/19 17:08 ED Treatment Course - LABORATORY CBC & Chemistry Diagram: 09/24/19 17:19 09/24/19 17:19 - ADDITIONAL ORDERS Additional order review: Laboratory Results 09/24/19 09/24/19 09/24/19 17:19 17:19 17:19 Sodium Potassium Chloride Carbon Dioxide Anion Gap BUN Creatinine Est GFR (CKD-EPI)AfAm Est GFR (CKD-EPI)NonAf Random Glucose Calcium Total Bilirubin AST ALT Alkaline Phosphatase Total Protein Albumin Lipase 61 L Urine Color Yellow Urine Appearance Clear Urine pH 8.0 Urine Protein 1+ H Urine Glucose (UA) Negative Urine Ketones 2+ H Urine Blood Negative Urine Nitrite Negative Urine Bilirubin Negative Urine Urobilinogen 0.2 Ur Leukocyte Esterase Negative Urine RBC 0-2 Urine WBC 2-5 Ur Transition Epith Cell Moderate Urine Mucus 2+ Urine HCG, Qual Negative 09/24/19 17:19 Sodium 137 Potassium 3.6 Chloride 111 H Carbon Dioxide 19 L Anion Gap 7 L BUN 10.0 Creatinine 0.7 Est GFR (CKD-EPI)AfAm 137.62 Est GFR (CKD-EPI)NonAf 118.74 Random Glucose 104 Calcium 9.5 Total Bilirubin 0.7 AST 26 ALT 26 Alkaline Phosphatase 43 L Total Protein 8.1 Albumin 4.7 Lipase Urine Color Urine Appearance Urine pH Urine Protein Urine Glucose (UA) Urine Ketones Urine Blood Urine Nitrite Urine Bilirubin Urine Urobilinogen Ur Leukocyte Esterase Urine RBC Urine WBC Ur Transition Epith Cell Urine Mucus Urine HCG, Qual 09/24/19 17:19 RBC 4.47 MCV 70.3 L MCHC 31.0 L RDW 18.8 H MPV 10.6 Neutrophils % No Result Required. Lymphocytes % No Result Required. - Medications Given in the ED: ED Medications Discontinued Medications Generic Name Dose Route Start Last Admin Trade Name Freq PRN Reason Stop Dose Admin Acetaminophen 1,000 mg 09/24/19 17:16 09/24/19 17:34 Ofirmev Injection - IVPB 09/24/19 17:17 1,000 mg ONCE ONE Administration Ondansetron HCl 4 mg 09/24/19 17:16 09/24/19 17:34 Zofran Injection IVPUSH 09/24/19 17:17 4 mg NOW ONE Administration Sodium Chloride 1,000 ml 09/24/19 17:16 09/24/19 17:34 Normal Saline - IV 09/24/19 17:17 1,000 ml ONCE ONE Administration Sodium Chloride 1,000 ml 09/24/19 19:03 09/24/19 19:13 Normal Saline - IV 09/24/19 19:04 1,000 ml ONCE ONE Administration ED Progress Note - Progress Note Progress Note: 09/24/19 19:00 Care of this patient was transferred to tn from Dr. Parekh at 1900 hrs. Patient is a 28-year-old female with nausea vomiting diarrhea and abdominal pain. Patient symptoms are most likely secondary to a viral etiology however patient did initially have some tenderness of her lower abdomen so a work-up was initiated including CBC, comp, urine, CT abdomen pelvis and ultrasound of her pelvis. 09/24/19 22:04 Patient does have a mild anemia but any evaluation of prior labs patient chronically has a mild anemia so she is at her baseline. Patient does not have a white count or left shift. And the rest of her blood work is unremarkable. Ultrasound did show some mild thickening of the endometrium which is physiological in nature as well as a small amount of fluid in the cul-de-sac. CAT scan was negative for any acute pathology the appendix was not definitively identified however given the fact that patient symptoms have improved and her pain is resolved as well as her blood work was unremarkable I think it is unlikely that this could be appendicitis note was also made that there was no other associated findings indicative of appendicitis on the CAT scan patient given copies of her blood work CAT scan and ultrasound and discharged home. Discharge - Discharge Information Problems reviewed: Yes Clinical Impression/Diagnosis: Pelvic pain, Nausea & vomiting Condition: Stable Disposition: HOME - Admission No - Follow up/Referral - Patient Discharge Instructions Additional Instructions: Return to the emergency department immediately with ANY new, persistent or worsening symptoms. Continue any medications as previously prescribed by your physician. You should follow up with your primary doctor as soon as possible regarding today's emergency department visit. . Please make sure your doctor reviews the results of your emergency evaluation. Thank you for coming to the Emergency Department today for your care. It was a pleasure to see you today. Please note that your evaluation is INCOMPLETE until you follow-up with your doctor. - Post Discharge Activity
--- NOTE | 2019-09-25 09:00 | EKG ---
Test Reason : Blood Pressure : / mmHG Vent. Rate : 066 BPM Atrial Rate : 066 BPM P-R Int : 166 ms QRS Dur : 080 ms QT Int : 462 ms P-R-T Axes : 062 051 057 degrees QTc Int : 484 ms NORMAL SINUS RHYTHM WITH SINUS ARRHYTHMIA PROLONGED QT ABNORMAL ECG NO PREVIOUS ECGS AVAILABLE Confirmed by LOBO HOWARD MD ([id number]) on 09/25/2019 9:00:22 AM Referred By: MD RODRIGUEZ Confirmed By:LOBO HOWARD MD
== END 2019-09-24 22:14 | disposition home or self-care (01) ==
LOC: FER 17:07
PROC: 3E0337Z Introduction of Electrolytic and Water Balance Substance into Peripheral Vein, Percutaneous Approach (ICD-10-PCS; principal; 2019-09-24)
DX: R10.2 Pelvic and perineal pain (principal); R11.2 Nausea with vomiting, unspecified
CPT/HCPCS: 36415; 74177-TC; 76830-TC; 80053; 81003; 81015; 83690; 84703; 85025; 87086; 93005; 99282-25; J0131; Q9967

== ENCOUNTER 2021-08-20 03:35 | Emergency (ER) | payer OTHER ==
[2021-08-20 04:06] VITALS: BP 144/89; PULSE 76; BMI 24.1
[2021-08-20] MEDS ORDERED: ACETAMINOPHEN 1000 MG/100 ML VIAL IVPB ONE (04:06)
[2021-08-20] MEDS ORDERED: ONDANSETRON 4 MG/2 ML VIAL IVPUSH ONE (04:06)
[2021-08-20] MEDS ORDERED: FAMOTIDINE 20 MG/50 ML IVPB 20 MG/50 ML MG IVPB ONE (04:06)
[2021-08-20] MEDS ORDERED: LACTATED RINGERS SOLUTION 1000 ML INFUS.BAG IV ONE (04:07)
[2021-08-20] MEDS ORDERED: ONDANSETRON 4 MG/2 ML VIAL ONE (04:29)
[2021-08-20] MEDS ORDERED: ACETAMINOPHEN INJECTION 100 ML IVPB ONE (04:29)
[2021-08-20] MEDS ORDERED: FAMOTIDINE/PF 20 MG/2 ML VIAL ONE (04:30)
[2021-08-20 04:47] LABS: BASO % 0.2 % (0-2.0); HEMATOCRIT 34.8 % (32.4-45.2); HEMOGLOBIN 11.2 GM/dL (10.7-15.3); LYMPH % 13.8 % (8-40); MCH 21.6 pg (25.7-33.7); MCHC 32.2 g/dl (32.0-36.0); MEAN CELL VOLUME 67.3 fl (80-96); MONO % 5.6 % (3.8-10.2); NEUT % 80.4 % (42.8-82.8); PLATELET COUNT 321 10^3/uL (134-434); RBC 5.18 M/mm3 (3.60-5.2); RDW 21.4 % (11.6-15.6); WHITE BLOOD COUNT 10.5 K/mm3 (4.0-10.0)
[2021-08-20 05:08] LABS: ALBUMIN 4.9 g/dl (3.4-5.0); CALCIUM 10.8 mg/dL (8.5-10.1)
[2021-08-20 05:12] LABS: CREATININE 0.8 mg/dL (0.55-1.3)
[2021-08-20 05:13] LABS: BILIRUBIN,TOTAL 0.5 mg/dL (0.2-1)
[2021-08-20 05:15] LABS: MAGNESIUM 2.3 mg/dL (1.8-2.4)
[2021-08-20 05:34] LABS: ANISOCYTOSIS 1+; MACROCYTOSIS 0; TARGET CELLS 1+
[2021-08-20 05:50] LABS: EPI CELLS >36 /uL (0-25.1); HCG,QUALITATIVE URINE Negative; HYALINE CASTS 12 /uL (0-3.1); URINE APPEARANCE TURBID; URINE BACTERIA 3554 /uL (0-1359); URINE BILIRUBIN NEGATIVE (NEGATIVE); URINE COLOR YELLOW; URINE GLUCOSE (UA) NEGATIVE (NEGATIVE); URINE KETONE 3+ (NEGATIVE); URINE LEUK ESTERASE NEGATIVE (NEGATIVE); URINE NITRITE NEGATIVE (NEGATIVE); URINE PROTEIN 1+ (NEGATIVE); URINE RBC 6 /uL (0-23.9); URINE WBC 24 /uL (0-25.8)
== END 2021-08-20 06:18 | disposition home or self-care (01) ==
LOC: JER 03:35
PROC: 3E0333Z Introduction of Anti-inflammatory into Peripheral Vein, Percutaneous Approach (ICD-10-PCS; principal; 2021-08-20)
PROC: 3E033GC Introduction of Other Therapeutic Substance into Peripheral Vein, Percutaneous Approach (ICD-10-PCS; 2021-08-20)
PROC: 3E033GC Introduction of Other Therapeutic Substance into Peripheral Vein, Percutaneous Approach (ICD-10-PCS; 2021-08-20)
DX: R11.2 Nausea with vomiting, unspecified (principal)
CPT/HCPCS: 36415; 80053; 81003; 83690; 83735; 84703; 85025; 87086; 99284-25; J0131

== ENCOUNTER 2022-05-19 10:01 | Emergency (ER) | payer OTHER ==
[2022-05-19 10:05] VITALS: BP 134/98; PULSE 82; RESP 18; TEMP 97; BMI 25.2
[2022-05-19] MEDS ORDERED: ONDANSETRON 4 MG/2 ML VIAL IVPUSH ONE ×2 (10:23→11:59)
[2022-05-19] MEDS ORDERED: SODIUM CHLORIDE 0.9% 500 ML INFUS.BAG IV ONE ×3 (10:23→13:05)
[2022-05-19] MEDS ORDERED: ONDANSETRON 4 MG/2 ML VIAL ONE ×2 (10:29→12:05)
[2022-05-19 11:04] LABS: BASO % 0.6 % (0-2.0); HEMATOCRIT 35.7 % (32.4-45.2); HEMOGLOBIN 11.2 GM/dL (10.7-15.3); LYMPH % 28.5 % (8-40); MCH 21.7 pg (25.7-33.7); MCHC 31.4 g/dl (32.0-36.0); MEAN CELL VOLUME 69.2 fl (80-96); MEAN PLT VOLUME 9.3 fl (7.5-11.1); MONO % 6.1 % (3.8-10.2); NEUT % 64.8 % (42.8-82.8); PLATELET COUNT 238 10^3/uL (134-434); RBC 5.15 M/mm3 (3.60-5.2); RDW 20.5 % (11.6-15.6); WHITE BLOOD COUNT 5.9 K/mm3 (4.0-10.0)
[2022-05-19 11:27] LABS: CALCIUM 10.1 mg/dL (8.5-10.1)
[2022-05-19 11:28] LABS: ALBUMIN 4.5 g/dl (3.4-5.0); BLOOD UREA NITROGEN 8.4 mg/dL (7-18)
[2022-05-19 11:31] LABS: CREATININE 0.7 mg/dL (0.55-1.3)
[2022-05-19 11:32] LABS: BILIRUBIN,TOTAL 0.4 mg/dL (0.2-1); TOT PROT 8.1 g/dl (6.4-8.2)
[2022-05-19 14:02] LABS: URINE APPEARANCE CLEAR; URINE BILIRUBIN NEGATIVE (NEGATIVE); URINE COLOR YELLOW; URINE GLUCOSE (UA) NEGATIVE (NEGATIVE); URINE KETONE NEGATIVE (NEGATIVE); URINE LEUK ESTERASE NEGATIVE (NEGATIVE); URINE NITRITE NEGATIVE (NEGATIVE); URINE PROTEIN NEGATIVE (NEGATIVE); URINE UROBILINOGEN 0.2 mg/dL (0.2-1.0)
[2022-05-19 14:05] LABS: HCG,QUALITATIVE URINE Negative
[2022-05-19] MEDS ORDERED: LORazepam 2 MG/ML SDV VIAL IVPB ONE (15:09)
== END 2022-05-19 17:04 | disposition home or self-care (01) ==
LOC: JER 10:01
PROC: 3E033GC Introduction of Other Therapeutic Substance into Peripheral Vein, Percutaneous Approach (ICD-10-PCS; principal; 2022-05-19)
DX: R11.2 Nausea with vomiting, unspecified (principal)
CPT/HCPCS: 36415; 80053; 81003; 83690; 84703; 85025; 87086; 99284-25

== ENCOUNTER 2022-07-13 10:41 | Emergency (ER) | payer OTHER ==
[2022-07-13 10:46] VITALS: BP 131/90; PULSE 63; RESP 18; TEMP 98.4; BMI 25.4
[2022-07-13] MEDS ORDERED: SODIUM CHLORIDE 0.9% 500 ML INFUS.BAG IV ONE (11:31)
[2022-07-13] MEDS ORDERED: ACETAMINOPHEN 1000 MG/100 ML BAG IVPB ONE (11:31)
[2022-07-13] MEDS ORDERED: ONDANSETRON 4 MG/2 ML VIAL IVPUSH ONE (11:31)
[2022-07-13] MEDS ORDERED: ACETAMINOPHEN INJECTION 100 ML IVPB ONE (11:50)
[2022-07-13] MEDS ORDERED: ONDANSETRON 4 MG/2 ML VIAL ONE (11:50)
[2022-07-13 12:39] LABS: ALBUMIN 4.1 g/dl (3.4-5.0); BLOOD UREA NITROGEN 10.2 mg/dL (7-18); CALCIUM 9.4 mg/dL (8.5-10.1); MAGNESIUM 2.1 mg/dL (1.8-2.4)
[2022-07-13 12:43] LABS: CREATININE 0.8 mg/dL (0.55-1.3); TOT PROT 7.8 g/dl (6.4-8.2)
[2022-07-13 12:45] LABS: BILIRUBIN,TOTAL 0.5 mg/dL (0.2-1)
[2022-07-13 12:47] LABS: BASO % 0.3 % (0-2.0); HEMATOCRIT 33.1 % (32.4-45.2); HEMOGLOBIN 10.3 GM/dL (10.7-15.3); LYMPH % 9.7 % (8-40); MCHC 31.2 g/dl (32.0-36.0); MEAN CELL VOLUME 70.5 fl (80-96); MONO % 3.3 % (3.8-10.2); NEUT % 86.7 % (42.8-82.8); PLATELET COUNT 295 10^3/uL (134-434); RDW 20.1 % (11.6-15.6); WHITE BLOOD COUNT 7.3 K/mm3 (4.0-10.0)
== END 2022-07-13 14:04 | disposition home or self-care (01) ==
LOC: JER 10:41 → JERFT 10:41
PROC: 3E0333Z Introduction of Anti-inflammatory into Peripheral Vein, Percutaneous Approach (ICD-10-PCS; principal; 2022-07-13)
PROC: 3E033GC Introduction of Other Therapeutic Substance into Peripheral Vein, Percutaneous Approach (ICD-10-PCS; 2022-07-13)
DX: R11.14 Bilious vomiting (principal)
CPT/HCPCS: 36415; 80053; 83735; 85025; 96374; 96375; 99284-25

== ENCOUNTER 2022-07-13 23:34 | Emergency (ER) | payer OTHER ==
[2022-07-13] MEDS ORDERED: ONDANSETRON 4 MG/2 ML VIAL IVPB ONE (23:41)
[2022-07-13] MEDS ORDERED: MAG HYDROX/AL HYDROX/SIMETH -MYLANTA- ORAL SUSPENSION PO ONE (23:41)
[2022-07-13] MEDS ORDERED: SODIUM CHLORIDE 0.9% 500 ML INFUS.BAG IV ONE (23:41)
[2022-07-13] MEDS ORDERED: FAMOTIDINE 20 MG/50 ML IVPB 20 MG in PREMIX 50 IVPB ONE (23:41)
[2022-07-13 23:43] VITALS: BP 137/96; PULSE 74; RESP 16; TEMP 99; BMI 25.0
[2022-07-13] MEDS ORDERED: FAMOTIDINE 20 MG/50 ML IVPB 20 MG/50 ML MG IVPB ONE (23:50)
[2022-07-13] MEDS ORDERED: MAG HYDROX/AL HYDROX/SIMETH 30 ML UNIT-DOSE CUP ONE (23:50)
[2022-07-13] MEDS ORDERED: ONDANSETRON 4 MG/2 ML VIAL ONE (23:50)
== END 2022-07-14 01:58 | disposition home or self-care (01) ==
LOC: FER 23:34
PROC: 3E033GC Introduction of Other Therapeutic Substance into Peripheral Vein, Percutaneous Approach (ICD-10-PCS; principal; 2022-07-13)
PROC: 3E033GC Introduction of Other Therapeutic Substance into Peripheral Vein, Percutaneous Approach (ICD-10-PCS; 2022-07-13)
DX: R11.10 Vomiting, unspecified (principal)
CPT/HCPCS: 81025; 96374; 96375; 99284-25

== ENCOUNTER 2022-08-21 04:50 | Emergency (ER) | payer OTHER ==
[2022-08-21] MEDS ORDERED: ONDANSETRON 4 MG/2 ML VIAL IVPB ONE (05:04)
[2022-08-21] MEDS ORDERED: ONDANSETRON 4 MG/2 ML VIAL ONE (05:06)
[2022-08-21] MEDS ORDERED: SODIUM CHLORIDE 1,000 ML IV ONE ×2 (05:12)
[2022-08-21 05:14] VITALS: TEMP 97.8; BMI 25.0
[2022-08-21] MEDS ORDERED: METOCLOPRAMIDE HCL INJECTION 10 MG/2 ML VIAL ONE (06:01)
[2022-08-21] MEDS: METOCLOPRAMIDE HCL INJECTION 10 MG/2 ML VIAL IVPUSH ONE ×2 (06:05→06:31)
[2022-08-21] MEDS ORDERED: METOCLOPRAMIDE HCL INJECTION 10 MG/2 ML VIAL IVPB ONE (06:27)
[2022-08-21] MEDS ORDERED: ALPRAZolam 0.25 MG TABLET PO STA (06:43)
[2022-08-21] MEDS ORDERED: ALPRAZolam 0.25 MG TABLET ONE (06:45)
[2022-08-21 06:57] VITALS: BP 134/100; PULSE 74; RESP 16
== END 2022-08-21 07:01 | disposition home or self-care (01) ==
LOC: FER 04:50
PROC: 3E033GC Introduction of Other Therapeutic Substance into Peripheral Vein, Percutaneous Approach (ICD-10-PCS; principal; 2022-08-21)
DX: F12.188 Cannabis abuse with other cannabis-induced disorder (principal); R11.10 Vomiting, unspecified
CPT/HCPCS: 96361; 96374; 96375; 99284-25

== ENCOUNTER 2022-08-23 19:12 | Emergency (ER) | payer OTHER ==
[2022-08-23 19:30] VITALS: PULSE 80; RESP 18; TEMP 98.2; BMI 24.9
[2022-08-23] MEDS ORDERED: SODIUM CHLORIDE 1,000 ML IV STA (20:07)
[2022-08-23] MEDS ORDERED: ONDANSETRON 4 MG/2 ML VIAL IVPUSH ONE (20:07)
[2022-08-23] MEDS ORDERED: FAMOTIDINE 20 MG/50 ML IVPB 20 MG/50 ML MG IVPB ONE ×2 (20:09→20:16)
[2022-08-23] MEDS ORDERED: ONDANSETRON 4 MG/2 ML VIAL ONE (20:15)
[2022-08-23 20:44] LABS: HEMOGLOBIN 10.7 G/dL (10.7-15.3); MCH 22.5 pg (25.7-33.7); MCHC 32.4 g/dl (32.0-36.0); MEAN CELL VOLUME 69.6 fl (80-96); MEAN PLT VOLUME 9.7 fl (7.5-11.1); PLATELET COUNT 276.7 10^3/uL (134-434); RBC 4.74 10^6/uL (3.60-5.2); RDW 20.5 % (11.6-15.6); WHITE BLOOD COUNT 8.7 10^3/uL (4.0-10.8)
[2022-08-23 21:06] LABS: PLATELET ESTIMATE ADEQUATE
[2022-08-23 21:15] LABS: ALBUMIN 4.4 g/dl (3.4-5.0); BILIRUBIN,TOTAL 0.9 mg/dl (0.2-1); CALCIUM 9.5 mg/dl (8.5-10); CREATININE 0.7 mg/dl (0.55-1.3); TOT PROT 7.4 g/dl (6.4-8.2)
[2022-08-23] MEDS ORDERED: POTASSIUM CHLORIDE TABS 20 MEQ TABLET.ER (FP) PO ONE ×2 (21:24→21:27)
[2022-08-23 21:49] VITALS: BP 156/104
== END 2022-08-23 21:56 | disposition home or self-care (01) ==
LOC: FER 19:12
PROC: 3E033GC Introduction of Other Therapeutic Substance into Peripheral Vein, Percutaneous Approach (ICD-10-PCS; principal; 2022-08-23)
DX: K29.70 Gastritis, unspecified, without bleeding (principal)
CPT/HCPCS: 36415; 80053; 85027; 96365; 96375; 99284-25

== ENCOUNTER 2022-10-22 15:48 | Emergency (ER) | payer OTHER ==
[2022-10-22 16:02] VITALS: BMI 25.0
[2022-10-22] MEDS ORDERED: METOCLOPRAMIDE HCL INJECTION 10 MG/2 ML VIAL IVPUSH ONE (16:53)
[2022-10-22] MEDS ORDERED: FAMOTIDINE 20 MG/50 ML IVPB 20 MG/50 ML MG IVPB ONE ×2 (16:53→17:15)
[2022-10-22] MEDS ORDERED: LACTATED RINGERS SOLUTION 1000 ML INFUS.BAG IV ONE (16:53)
[2022-10-22] MEDS ORDERED: METOCLOPRAMIDE HCL INJECTION 10 MG/2 ML VIAL ONE (17:15)
[2022-10-22 17:51] LABS: BASO % 0.5 % (0-2.0); EOS % 0.3 % (0-4.5); HEMATOCRIT 35.5 % (32.4-45.2); HEMOGLOBIN 11.5 GM/dL (10.7-15.3); LYMPH % 28.2 % (8-40); MCH 22.2 pg (25.7-33.7); MCHC 32.4 g/dl (32.0-36.0); MEAN CELL VOLUME 68.7 fl (80-96); MEAN PLT VOLUME 9.1 fl (7.5-11.1); MONO % 11.1 % (3.8-10.2); NEUT % 59.9 % (42.8-82.8); PLATELET COUNT 284 10^3/uL (134-434); RBC 5.16 M/mm3 (3.60-5.2); RDW 20.1 % (11.6-15.6); WHITE BLOOD COUNT 8.8 K/mm3 (4.0-10.0)
[2022-10-22 17:58] LABS: INR 1.2 (0.83-1.09); PROTHROMBIN TIME (PATIENT) 13.9 SEC (9.7-13.0)
[2022-10-22 18:00] LABS: ACTIVATED PTT 29.2 SECONDS (25.2-36.5)
[2022-10-22 18:18] LABS: CALCIUM 9.6 mg/dL (8.5-10.1)
[2022-10-22 18:19] LABS: ALBUMIN 4.5 g/dl (3.4-5.0); BLOOD UREA NITROGEN 8.8 mg/dL (7-18); MAGNESIUM 2.6 mg/dL (1.8-2.4)
[2022-10-22 18:21] LABS: CREATININE 0.8 mg/dL (0.55-1.3)
[2022-10-22 18:23] LABS: BILIRUBIN,TOTAL 0.5 mg/dL (0.2-1); TOT PROT 7.9 g/dl (6.4-8.2)
[2022-10-22 19:20] VITALS: BP 140/84; PULSE 72; RESP 16; TEMP 99.4
== END 2022-10-22 18:47 | disposition home or self-care (01) ==
LOC: JER 15:48
PROC: 3E033GC Introduction of Other Therapeutic Substance into Peripheral Vein, Percutaneous Approach (ICD-10-PCS; principal; 2022-10-22)
DX: R11.2 Nausea with vomiting, unspecified (principal)
CPT/HCPCS: 0241U-QW; 36415; 80053; 83690; 83735; 84703; 85025; 85610; 85730; 93005; 93010; 96374; 99284-25

== ENCOUNTER 2022-11-16 16:18 | Emergency (ER) | payer OTHER ==
[2022-11-16 17:19] VITALS: BMI 25.0
[2022-11-16] MEDS ORDERED: LACTATED RINGERS SOLUTION 1,000 ML/1,000 ML INFUS.BAG IV SCH (18:15)
[2022-11-16 18:41] LABS: HEMATOCRIT 36.1 % (32.4-45.2); HEMOGLOBIN 12.1 G/dL (10.7-15.3); MCH 23.2 pg (25.7-33.7); MCHC 33.5 g/dl (32.0-36.0); MEAN CELL VOLUME 69.2 fl (80-96); MEAN PLT VOLUME 8.9 fl (7.5-11.1); PLATELET COUNT 257.2 10^3/uL (134-434); RBC 5.21 10^6/uL (3.60-5.2); WHITE BLOOD COUNT 9.2 10^3/uL (4.0-10.8)
[2022-11-16 18:50] LABS: CALCIUM 10.2 mg/dl (8.5-10)
[2022-11-16 18:56] LABS: ALBUMIN 4.9 g/dl (3.4-5.0); CREATININE 0.8 mg/dl (0.55-1.3); TOT PROT 8.2 g/dl (6.4-8.2)
[2022-11-16 19:13] LABS: PLATELET ESTIMATE ADEQUATE
[2022-11-16] MEDS ORDERED: ONDANSETRON 4 MG/2 ML VIAL IVPB ONE (20:17)
[2022-11-16] MEDS ORDERED: ONDANSETRON 4 MG/2 ML VIAL ONE (20:19)
[2022-11-16 20:41] LABS: HCG,QUALITATIVE URINE Negative
[2022-11-16 21:36] LABS: EPITHELIAL CELLS FEW /hpf
[2022-11-16 22:29] VITALS: BP 147/103; PULSE 84; RESP 17; TEMP 98.7
== END 2022-11-16 22:51 | disposition home or self-care (01) ==
LOC: FER 16:18
PROC: 3E033GC Introduction of Other Therapeutic Substance into Peripheral Vein, Percutaneous Approach (ICD-10-PCS; principal; 2022-11-16)
DX: K29.70 Gastritis, unspecified, without bleeding (principal); N39.0 Urinary tract infection, site not specified; Z20.822 Contact with and (suspected) exposure to COVID-19
CPT/HCPCS: 0241U-QW; 36415; 74177-TC; 80053; 81003; 81015; 83690; 84703; 85027; 87086; 99285-25; Q9967

== ENCOUNTER 2023-02-09 21:38 | Emergency (ER) | payer OTHER ==
[2023-02-09 21:46] VITALS: BP 130/93; PULSE 79; RESP 16; TEMP 97.6; BMI 25.0
[2023-02-09] MEDS ORDERED: HALOPERIDOL LACTATE 5 MG/ML IM ONE (22:06)
[2023-02-09] MEDS ORDERED: ONDANSETRON 4 MG/2 ML VIAL IVPB ONE (22:14)
[2023-02-09] MEDS ORDERED: SODIUM CHLORIDE 1,000 ML IV SCH ×2 (22:15→22:31)
[2023-02-09] MEDS ORDERED: ONDANSETRON 4 MG/2 ML VIAL ONE (22:25)
[2023-02-09 22:58] LABS: HEMATOCRIT 34.1 % (32.4-45.2); HEMOGLOBIN 10.9 G/dL (10.7-15.3); MCH 22.3 pg (25.7-33.7); MCHC 31.9 g/dl (32.0-36.0); MEAN CELL VOLUME 69.9 fl (80-96); PLATELET COUNT 259.3 10^3/uL (134-434); RBC 4.88 10^6/uL (3.60-5.2); RDW 20.7 % (11.6-15.6); WHITE BLOOD COUNT 10.6 10^3/uL (4.0-10.8)
[2023-02-09 23:03] LABS: ALBUMIN 4.4 g/dl (3.4-5.0); BILIRUBIN,TOTAL 0.3 mg/dl (0.2-1); CALCIUM 9.8 mg/dl (8.5-10); CREATININE 0.7 mg/dl (0.55-1.3); TOT PROT 7.7 g/dl (6.4-8.2)
[2023-02-09] MEDS ORDERED: METOCLOPRAMIDE HCL INJECTION 10 MG/2 ML VIAL IVPB ONE (23:42)
[2023-02-09] MEDS ORDERED: METOCLOPRAMIDE HCL INJECTION 10 MG/2 ML VIAL ONE (23:43)
[2023-02-10] MEDS ORDERED: SODIUM CHLORIDE 1,000 ML IV STA (00:28)
== END 2023-02-10 01:17 | disposition home or self-care (01) ==
LOC: FER 21:38
PROC: 3E033GC Introduction of Other Therapeutic Substance into Peripheral Vein, Percutaneous Approach (ICD-10-PCS; principal; 2023-02-09)
PROC: 3E033GC Introduction of Other Therapeutic Substance into Peripheral Vein, Percutaneous Approach (ICD-10-PCS; 2023-02-09)
PROC: 3E0337Z Introduction of Electrolytic and Water Balance Substance into Peripheral Vein, Percutaneous Approach (ICD-10-PCS; 2023-02-09)
DX: R11.2 Nausea with vomiting, unspecified (principal)
CPT/HCPCS: 36415; 80053; 85027; 99284-25

== ENCOUNTER 2023-03-31 16:25 | Emergency (ER) | payer OTHER ==
[2023-03-31 16:40] VITALS: TEMP 98.5; BMI 25.0
[2023-03-31 18:58] VITALS: BP 117/86; PULSE 74; RESP 16
== END 2023-03-31 19:44 | disposition home or self-care (01) ==
LOC: JERFT 16:25
DX: S49.92XA Unspecified injury of left shoulder and upper arm, initial encounter (principal); S89.92XA Unspecified injury of left lower leg, initial encounter; V49.40XA Driver injured in collision with unspecified motor vehicles in traffic accident, initial encounter; W22.8XXA Striking against or struck by other objects, initial encounter
CPT/HCPCS: 73030-TC-LT-FY; 73562-TC-LT-FY; 99284-25